=== PATIENT | female | born 1975 | race African-American/Black ===

== ENCOUNTER 2017-10-11 12:23 | Emergency (ER) | payer OTHER ==
--- OUTSIDE RECORDS SUMMARY | 2017-10-11 12:47 | XMS REPORT | Clinical Summary ---
:1975 Author Organization [facility] Address [address] [place] [address] Phone Care Team Providers Name Role Phone Unavailable Primary Care Provider Unavailable Allergies No Known Allergies Current Medications Prescription Sig. Disp. Refills Start Date End Date Status acetaminophen Take 2 30 tablet 0 02/23/2017 02/18/2018 Active (TYLENOL) 325 MG tablets (650 tablet mg total) by mouth every 8 (eight) hours as needed for up to 360 days. ferrous sulfate 325 Take 1 tablet 360 tablet 0 02/23/2017 02/23/2018 Active (65 FE) MG tablet (325 mg total) by mouth daily with breakfast. cefdinir (OMNICEF) Take 1 14 capsule 0 02/23/2017 03/04/2017 Discontinued 300 MG capsule capsule (300 mg total) by mouth every 12 (twelve) hours for 7 days. acetaminophen-codei Take 1 tablet 30 tablet 0 03/04/2017 03/14/2017 ne (TYLENOL #3) by mouth 300-30 mg per every 6 (six) tablet hours as needed for Pain for up to 10 days. Max Daily Amount: 4 tablets docusate sodium Take 1 10 capsule 0 03/04/2017 03/14/2017 (COLACE) 100 MG capsule (100 capsule mg total) by mouth 2 (two) times daily for 10 days. levoFLOXacin Take 1 tablet 5 tablet 0 03/04/2017 03/09/2017 (LEVAQUIN) 500 MG (500 mg tablet total) by mouth daily for 5 days. traMADol (ULTRAM) Take 2 30 tablet 0 03/04/2017 03/14/2017 50 mg tablet tablets (100 mg total) by mouth every 6 (six) hours as needed for up to 10 days. 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 Encounters Date Type Specialty Care Team Description 03/01/2017 - Hospital Encounter General Internal Telly Kc 03/04/2017 Medicine MD Boris 03/01/2017 Procedure Pass 03/01/2017 Surgery Telly Kc NEPHRECTOMY MD Boris 02/26/2017 Hospital Encounter Pre-Admission Telly Kc Testing MD Boris 02/26/2017 Anesthesia Event Axel Butcher MD 02/20/2017 - Hospital Encounter General Internal Francisco, [place] Calculous 02/23/2017 Medicine MD Aydee pyelonephritis;Yuni Bacon, unspecified RGabi, type;XGP Marimar Brennan (xanthogranulomatou MD Patrizia s pyelonephritis) after 10/10/2016 Social History Tobacco Use Types Packs/Day Years Used Date Never Smoker Smokeless Tobacco: Never Used Alcohol Use Drinks/Week oz/Week Comments No Sex Assigned at Date Recorded Not on file Last Filed Vital Signs Vital Sign Reading Time Taken Blood Pressure 109/68 03/04/2017 11:39 AM LAP MACHINE OPERATOR Pulse 92 03/04/2017 11:39 AM LAP MACHINE OPERATOR Temperature 36 C (96.8 F) 03/04/2017 11:39 AM LAP MACHINE OPERATOR Respiratory Rate 18 03/04/2017 11:39 AM LAP MACHINE OPERATOR Oxygen Saturation 95% 03/04/2017 11:39 AM LAP MACHINE OPERATOR Inhaled Oxygen Concentration - - Weight 78.2 kg (172 lb 6.4 oz) 03/01/2017 7:18 AM LAP MACHINE OPERATOR Height 144.8 cm (4' 9") 03/01/2017 7:18 AM LAP MACHINE OPERATOR Body Mass Index 37.31 03/01/2017 7:18 AM LAP MACHINE OPERATOR Plan of Treatment Not on file Procedures Procedure Name Priority Date/Time Associated Diagnosis Comments NEPHRECTOMY 03/01/2017 8:00 AM LAP MACHINE OPERATOR XGP (xanthogranulomatous pyelonephritis) after 10/10/2016 Results INTRAOPERATIVE PATH REPORT - SCAN (03/04/2017 10:41 AM)CBC with platelet count + automated diff (03/04/2017 6:15 AM)Only the most recent of4 resultswithin the time period is included. Component Value Ref Range WBC 17.8 (H) 3.5 - 10.5 K/L RBC 2.91 (L) 3.93 - 5.22 M/L Hemoglobin 7.4 (L) 11.2 - 15.7 GM/DL Hematocrit 24.3 (L) 34.1 - 44.9 % MCV 83.5 79.4 - 94.8 fL MCH 25.4 (L) 25.6 - 32.2 pg MCHC 30.5 (L) 32.2 - 35.5 GM/DL RDW 20.7 (H) 11.7 - 14.4 % Platelets 337 150 - 450 K/CU MM MPV 9.1 (L) 9.4 - 12.3 fL nRBC 0 0 - 0 /100 WBC % Neutros 86 % % Lymphs 6 % % Monos 8 % % Eos 0 % % Baso 0 % # Neutros 15.23 (H) 1.56 - 6.13 K/L # Lymphs 1.03 (L) 1.18 - 3.74 K/L # Monos 1.34 (H) 0.24 - 0.36 K/L # Eos 0.06 0.04 - 0.36 K/L # Baso 0.04 0.01 - 0.08 K/L Immature Granulocytes-Relative 1 0 - 1 % Specimen Performing Laboratory Blood - Arm, [address] [address] CBC with platelet count + automated diff (03/04/2017 6:15 AM)Only the most recent of4 resultswithin the time period is included. Specimen Performing Laboratory Blood Narrative The following orders were created for panel order CBC with platelet count + automated diff. Procedure Abnormality Status --------- ------ CBC with platelet count ...[[id number]]AbnormalFinal result Please view results for these tests on the individual orders. Phosphorus (03/04/2017 4:19 AM)Only the most recent of2 resultswithin the time period is included. Component Value Ref Range Phosphorus 3.1Comment: Specimen slightly hemolyzed 2.3 - 4.7 mg/dL Specimen Performing Laboratory Blood - Arm, [address] [address] Magnesium (03/04/2017 4:19 AM)Only the most recent of2 resultswithin the time period is included. Component Value Ref Range Magnesium 1.7Comment: Specimen slightly hemolyzed 1.6 - 2.6 mg/dL Specimen Performing Laboratory Blood - Arm, [address] [address] Basic Metabolic Panel (03/04/2017 4:19 AM)Only the most recent of8 resultswithin the time period is included. Component Value Ref Range Sodium 134 (L) 136 - 145 meq/L Potassium 4.1Comment: Specimen slightly hemolyzed 3.5 - 5.1 meq/L Chloride 102 98 - 107 meq/L CO2 24 22 - 29 meq/L BUN 5 (L) 7 - 21 mg/dL Creatinine 0.72Comment: Specimen slightly hemolyzed 0.57 - 1.25 mg/dL Glucose 118 (H) 70 - 105 mg/dL Calcium 8.6 8.4 - 10.2 mg/dL EGFR Comment: INSUFFICIENT CLINICAL DATA TO CALCULATE mL/min/1.73 sq m ESTIMATED GFR. Specimen Performing Laboratory Blood - Arm, [address] [address] TRANSFUSION SERVICE REPORT - SCAN (03/03/2017 5:52 PM)Only the most recent of4 resultswithin the time period is included.Prepare Leuko-Red RBC (03/02/2017 11: 54 PM)Only the most recent of2 resultswithin the time period is included. Component Value Ref Range CROSSMATCH COMPATIBLE Unit ABO A Pos UNIT NUMBER [id number] Status TRANSFUSED Blood Bank Product RED BLOOD CELLS PRODUCT CODE Y3635V10 CROSSMATCH COMPATIBLE Unit ABO A Pos UNIT NUMBER [id number] Status RETURNED FROM ISSUE Blood Bank Product RED BLOOD CELLS PRODUCT CODE [id number] Specimen Performing Laboratory Other [place] Urine culture (03/02/2017 8:14 AM)Only the most recent of2 resultswithin the time period is included. Component Value Ref Range Result No growth Specimen Performing Laboratory Urine - Urine, [address] [address] Hemoglobin and hematocrit (03/01/2017 2:05 PM)Only the most recent of3 resultswithin the time period is included. Component Value Ref Range Hemoglobin 9.1 (L) 11.2 - 15.7 GM/DL Hematocrit 30.1 (L) 34.1 - 44.9 % Specimen Performing Laboratory Blood - Line, Arterial [facility] [address] [address] XR chest 1 view portable / bedside (03/01/2017 1:55 PM) Specimen Performing Laboratory GE RIS Narrative FINAL REPORT Chest, AP view. History: Evaluate for pneumothorax. Comparison: None available. Discussion:The cardiomediastinal silhouette and pulmonary vasculature are within normal limits. The lungs are clear without evidence of consolidation or effusion.There are no acute osseous abnormalities. The soft tissues are unremarkable. No pneumothorax. IMPRESSION: No acute cardiopulmonary abnormality. Signed: Lio Gooden MD Report Verified Date/Time:03/01/2017 14:28:53 Reading Location: [facility] Mammo Reading Room Procedure Note Interface, External Ris In - 03/01/2017 2:31 PM LAP MACHINE OPERATOR FINAL REPORT Chest, AP view. History: Evaluate for pneumothorax. Comparison: None available. Discussion: The cardiomediastinal silhouette and pulmonary vasculature are within normal limits. The lungs are clear without evidence of consolidation or effusion. There are no acute osseous abnormalities. The soft tissues are unremarkable. No pneumothorax. IMPRESSION: No acute cardiopulmonary abnormality. Signed: Lio Gooden MD Report Verified Date/Time: 03/01/2017 14:28:53 Reading Location: [facility] Mammo Reading Room Tissue Exam (03/01/2017 11:57 AM) Component Value Ref Range Case Report Surgical Pathology Report Case: [id number] Authorizing Provider:Telly Kc MDCollected: 03/01/2017 1157 Ordering Location: [facility] PERIOPERATIVE Received: 03/01/2017 1205 SERVICES Pathologist: Judy Pineda MD Specimen:Kidney, Right, RIGHT KIDNEY; SHOW AND TELL WITH BIVALVE AND BRING BACK ADDENDUM INTRAOPERATIVE CONSULTATION KIDNEY, RIGHT, RADICAL NEPHRECTOM ( GROSS ONLY): -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 PINEDA ON 03/01 AT 12:15 P.M. CPT CODE: 12275 DIAGNOSIS KIDNEY, RIGHT, RADICAL NEPHRECTOMY: - WEIGHT: 1400 GM - XANTHOGRANULOMATOUS PYELONEPHRITIS, SEE COMMENT - STAGHORN CALCULI IN THE CALYCEAL SYSTEM (GROSS EXAMINATION) - URETER AT THE MARGIN WITH ULCERATED MUCOSA AND CHRONIC INFLAMMATION - ADRENAL GLAND, UNREMARKABLE - NEGATIVE FOR MALIGNANCY Signing Pathologist Direct Phone Line: [phone] COMMENT Section of the kidney shows marked diffuse chronic inflammation and focal foamy histiocytes throughout the renal parenchyma. The hilar region of the kidney is diffusely sclerotic and renal pelvic vasculature are difficult to identify. Presence of multiple large staghorn shaped stones within the dilated calyx are noted as per gross description. Overall, the gross and microscopic examination along with patient's history of recurrent kidney stone and infection is consistent with xanthogranulomatous pyelonephritis. CPT Code(s) 77619 CLINICAL HISTORY Right xanthogranulomatous pyelonephritis SPECIMEN SOURCE Right kidney GROSS DESCRIPTION Part A: The specimen is received fresh for operative labeled with the patient's name, Hussain Go" and "right kidney" and is a 1 ,400 gm total nephrectomy specimen measuring 18.0 x 13.0 x 14.0 cm. A ttached are moderate amount of perinephric adipose tissue and a fragment of adrenal gland (2.0 x 0.4 x 0.3 cm). No distinct ureter or renal vasculature is identified on the outer surface of the specimen . The kidney is bivalved revealing a large dilated calices with staghorn stones within the calayx identified. Within the kidney are exuberant amount of arreguin-yellow purulent exudate. The hilar region is e xcessively fibrotic and sclerosed with no grossly identifiable vascular structures identified. Serially sectioning of the specimen shows no distinct masses. Network Development Coordinator sections are submitted as follows. A1, ureter margin A2-A3, hilar region with renal sinus adipose tissue A4-A6, inside account representative section of cortex A7-A8, renal medulla and renal sinus adipose A9-A10, adrenal gland tissue. CHANDU/ew MICROSCOPIC DESCRIPTION Performed. Specimen Performing Laboratory Tissue - Kidney, Right [facility] [address] [place] [address] [facility] CRITICAL LABS (ABG,NA,K,H&H,GLUCOSE) (03/01/2017 11:07 AM) Specimen Performing Laboratory Blood, Arterial Narrative The following orders were created for panel order [facility] CRITICAL LABS (ABG,NA,K,H&H,GLUCOSE). Procedure Abnormality Status --------- ------ Blood gas, arterial[[id number]]AbnormalFinal result Sodium Na-Stat Lab[[id number]] NormalFinal result Potassium-Stat Lab[[id number]] NormalFinal result Glucose-Stat Lab[[id number]] AbnormalFinal result HGB/HCT (H&H)-Stat Lab[[id number]] Abnormal Final result Please view results for these tests on the individual orders. Potassium-Stat Lab (03/01/2017 11:07 AM) Component Value Ref Range Potassium 4.0 3.6 - 5.5 meq/L Specimen Performing Laboratory Blood, Arterial [address] [address] Sodium Na-Stat Lab (03/01/2017 11:07 AM) Component Value Ref Range Sodium 137 135 - 148 meq/L Specimen Performing Laboratory Blood, Arterial [address] [address] Glucose-Stat Lab (03/01/2017 11:07 AM) Component Value Ref Range Glucose 205 (H) 70 - 110 mg/dL Specimen Performing Laboratory Blood, Arterial [address] [address] HGB/HCT (H&H)-Stat Lab (03/01/2017 11:07 AM) Component Value Ref Range Hemoglobin 8.9 (L) 12.0 - 15.0 g/dL Hematocrit 26.0 (L) 36.0 - 45.0 % Specimen Performing Laboratory Blood, Arterial [address] [address] Calcium, Ionized (03/01/2017 11:07 AM) Component Value Ref Range Calcium, Ion 0.95 (L) 1.12 - 1.27 mmol/L pH, Blood 7.46 Specimen Performing Laboratory Blood [address] [address] Blood gas, arterial (03/01/2017 11:07 AM) Component Value Ref Range pH, Arterial 7.46 (H) 7.35 - 7.45 pCO2, Arterial 35 35 - 45 mmHg pO2, Arterial 265 (H) 80 - 90 mmHg O2 Sat, Arterial 99.7 (H) 96.0 - 97.0 % HCO3, Arterial 24 21 - 29 mmol/L Base Excess, Arterial 0.8 -2.0 - 3.0 mmol/L Patient Temperature 37.0 C FIO2 100.0 % Specimen Performing Laboratory Blood, Arterial [address] [address] Urinalysis w/ Microscopic (03/01/2017 7:56 AM) Component Value Ref Range Color, UA Yellow Clarity, UA Cloudy Specific [place], UA 1.013 1.001 - 1.035 pH, UA 8.0 5.0 - 8.0 Protein, UA 100 mg/dL (A) Negative Glucose, UA Negative Negative Ketones, UA Negative Negative Bilirubin, UA Negative Negative Blood, UA Small (A) Negative Nitrite, UA Negative Negative Leukocytes, UA Large (A) Negative Urobilinogen, UA 0.2 0.2 - 1.0 mg/dL RBC, UA 73 /HPF WBC, UA >182 /HPF Squam Epithel, UA 1 /HPF Specimen Source Urine, Clean Catch Specimen Performing Laboratory Urine - Urine, Clean Catch [address] [address] POCT , urine (03/01/2017 7:54 AM) Component Value Ref Range Test Urine, POC Negative Control line present?, POC Yes Background clear?, POC Yes UPT Cassette Lot #, POC [id number] UPT Cassette Expiration Date, POC 09/16/2018 Specimen Performing Laboratory Urine Type and screen, automated (03/01/2017 7:16 AM)Only the most recent of2 resultswithin the time period is included. Component Value Ref Range Ab Scrn NEGATIVEComment: ECHO 1 Specimen Performing Laboratory Blood [address] [address] ABORH, manual (03/01/2017 7:16 AM) Component Value Ref Range ABO Grouping A Rh Factor POS Specimen Performing Laboratory Blood [address] [address] Prothrombin time/INR (03/01/2017 7:16 AM) Component Value Ref Range Protime 17.2 (H) 11.7 - 14.7 seconds INR 1.4 <=5.9 Specimen Performing Laboratory Blood [address] [address] Narrative RECOMMENDED COUMADIN/WARFARIN INR THERAPY RANGES STANDARD DOSE: 2.0 - 3.0 Includes: PROPHYLAXIS for venous thrombosis, systemic embolization; TREATMENT for venous thrombosis and/or pulmonary embolus. HIGH RISK: Target INR is 2.5-3.5 for patients with mechanical heart valves. hCG, quantitative, (03/01/2017 7:16 AM) Component Value Ref Range hCG Quant <1 0 - 10 mIU/mL Specimen Performing Laboratory Blood [address] [address] Narrative Non- Females: <10 mIU/mL Females: Gestation AgeReference Range(mIU/mL) 0.2-1 Week5-50 1-2 Sprpa43-878 2-3 Weeks 100-5,000 3-4 Weeks 500-10,000 4-5 Weeks 1,000-50,000 5-6 Weeks10,000-100,000 6-8 Weeks15,000-200,000 2-3 Months 10,000-100,000 CBC (Hemogram only) (02/22/2017 4:50 AM)Only the most recent of3 resultswithin the time period is included. Component Value Ref Range WBC 13.1 (H) 3.5 - 10.5 K/L RBC 3.81 (L) 3.93 - 5.22 M/L Hemoglobin 9.1 (L) 11.2 - 15.7 GM/DL Hematocrit 30.1 (L) 34.1 - 44.9 % MCV 79.0 (L) 79.4 - 94.8 fL MCH 23.9 (L) 25.6 - 32.2 pg MCHC 30.2 (L) 32.2 - 35.5 GM/DL RDW 20.6 (H) 11.7 - 14.4 % Platelets 440 150 - 450 K/CU MM MPV 8.6 (L) 9.4 - 12.3 fL nRBC 0 0 - 0 /100 WBC Specimen Performing Laboratory Blood [facility] [address] [address] Transfuse Leuko-Red RBC (02/20/2017 8:05 PM)Only the most recent of3 resultswithin the time period is included.CT abdomen/pelvis without iv contrast (02/20/2017 2:47 PM) Specimen Performing Laboratory GE RIS Narrative FINAL REPORT TECHNIQUE: CT of the abdomen and pelvis WITHOUT intravenous contrast and WITHOUT oral contrast. Dose modulation, iterative reconstruction, and/or weight-based adjustment of the mA/kV was utilized to reduce the radiation dose to as low as reasonably achievable. INDICATION: 41-year-old woman with pyelonephritis. COMPARISON: None. FINDINGS: ABSENCE OF INTRAVENOUS CONTRAST DECREASES SENSITIVITY FOR DETECTION OF FOCAL LESIONS AND VASCULAR PATHOLOGY. LOWER THORAX: Unremarkable. HEPATOBILIARY: Decreased attenuation of the liver, consistent with hepatic steatosis. No focal hepatic lesions. Gallbladder is unremarkable. No biliary ductal dilatation. SPLEEN: No splenomegaly. PANCREAS: No focal masses or ductal dilatation. ADRENALS: No adrenal nodules. KIDNEYS/URETERS: The right kidney is enlarged, measuring 16.5 cm in length, and contains multiple hypodense structures. Staghorn calculus on the right, with additional renal calculi measuring up to 3.1 cm. Right perinephric stranding. Left kidney is unremarkable. PELVIC ORGANS/BLADDER: 1.4 cm partially calcified fibroid at the fundus. Ovaries are grossly. Bladder is unremarkable. PERITONEUM/RETROPERITONEUM: No free air or fluid. LYMPH NODES: Multiple mildly prominent retroperitoneal lymph nodes measure up to 1 cm, likely reactive. VESSELS: Unremarkable. GI TRACT: No distention or wall thickening. BONES AND SOFT TISSUES: Unremarkable. 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 Right staghorn calculus with additional large right renal calculi. Hepatic steatosis. Uterine fibroid. Signed: Mike Urrutia MD Report Verified Date/Time:02/20/2017 15:09:48 Reading Location: [address] Body Reading Room Procedure Note Interface, External Ris In - 02/20/2017 3:11 PM CDT FINAL REPORT TECHNIQUE: CT of the abdomen and pelvis WITHOUT intravenous contrast and WITHOUT oral contrast. Dose modulation, iterative reconstruction, and/or weight-based adjustment of the mA/kV was utilized to reduce the radiation dose to as low as reasonably achievable. INDICATION: 41-year-old woman with pyelonephritis. COMPARISON: None. FINDINGS: ABSENCE OF INTRAVENOUS CONTRAST DECREASES SENSITIVITY FOR DETECTION OF FOCAL LESIONS AND VASCULAR PATHOLOGY. LOWER THORAX: Unremarkable. HEPATOBILIARY: Decreased attenuation of the liver, consistent with hepatic steatosis. No focal hepatic lesions. Gallbladder is unremarkable. No biliary ductal dilatation. SPLEEN: No splenomegaly. PANCREAS: No focal masses or ductal dilatation. ADRENALS: No adrenal nodules. KIDNEYS/URETERS: The right kidney is enlarged, measuring 16.5 cm in length, and contains multiple hypodense structures. Staghorn calculus on the right, with additional renal calculi measuring up to 3.1 cm. Right perinephric stranding. Left kidney is unremarkable. PELVIC ORGANS/BLADDER: 1.4 cm partially calcified fibroid at the fundus. Ovaries are grossly. Bladder is unremarkable. PERITONEUM/RETROPERITONEUM: No free air or fluid. LYMPH NODES: Multiple mildly prominent retroperitoneal lymph nodes measure up to 1 cm, likely reactive. VESSELS: Unremarkable. GI TRACT: No distention or wall thickening. BONES AND SOFT TISSUES: Unremarkable. 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 Right staghorn calculus with additional large right renal calculi. Hepatic steatosis. Uterine fibroid. Signed: Mike Urrutia MD Report Verified Date/Time: 02/20/2017 15:09:48 Reading Location: [facility] B1 C013Y CT Body Reading Room Screen, urine (02/20/2017 11:45 AM) Component Value Ref Range Preg Test, Ur Negative Specimen Performing Laboratory Urine - Urine, Clean Catch [address] [address] Ferritin (02/20/2017 9:49 AM) Component Value Ref Range Ferritin 158 5 - 275 ng/mL Specimen Performing Laboratory Blood [address] [address] Blood culture #2 (02/20/2017 5:14 AM)Only the most recent of2 resultswithin the time period is included. Component Value Ref Range Result No growth in 5 days Specimen Performing Laboratory Blood - Arm, Left [address] [address] Iron, TIBC, % sat. (without ferritin) (02/20/2017 5:07 AM) Component Value Ref Range Iron 9 (L) 40 - 160 ug/dL TIBC 156 (L) 250 - 450 ug/dL Iron % Saturation 6 (L) 20 - 55 % Specimen Performing Laboratory Blood [address] [address] after 10/10/2016
--- OUTSIDE RECORDS SUMMARY | 2017-10-11 12:48 | XMS REPORT ---
:1975 [facility] Address [address] [place] [address] Care Team Providers Name Role Phone LORE KC Unavailable Unavailable JUSTO TEJADA Unavailable Unavailable Problems This patient has no known problems. Allergies, Adverse Reactions, Alerts This patient has no known allergies or adverse reactions. Medications This patient has no known medications. Results Test Description Test Time Test Comments Text Results Atomic Results Result Comments URINE CULTURE 2017-03-04 11:51:00 Test Item Value Reference Range Comments CULTURE (BEAKER) (test jbks=5088) No growth CBC W/PLT COUNT & AUTO [id number] 06:51:00 Test Item Value Reference Range Comments WHITE BLOOD CELL COUNT (BEAKER) (test sokl=773) 17.8 K/ L 3.5-10.5 RED BLOOD CELL COUNT (BEAKER) (test opuv=961) 2.91 M/ L 3.93-5.22 HEMOGLOBIN (BEAKER) (test hgis=200) 7.4 GM/DL 11.2-15.7 HEMATOCRIT (BEAKER) (test lcfk=145) 24.3 % 34.1-44.9 MEAN CORPUSCULAR VOLUME (BEAKER) (test dofy=672) 83.5 fL 79.4-94.8 MEAN CORPUSCULAR HEMOGLOBIN (BEAKER) (test 25.4 pg 25.6-32.2 jfyf=317) MEAN CORPUSCULAR HEMOGLOBIN CONC (BEAKER) (test 30.5 GM/DL 32.2-35.5 ismf=685) RED CELL DISTRIBUTION WIDTH (BEAKER) (test 20.7 % 11.7-14.4 pnqh=997) PLATELET COUNT (BEAKER) (test bvrq=047) 337 K/CU MM 150-450 MEAN PLATELET VOLUME (BEAKER) (test degc=301) 9.1 fL 9.4-12.3 NUCLEATED RED BLOOD CELLS (BEAKER) (test 0 /100 WBC 0-0 cbmm=353) NEUTROPHILS RELATIVE PERCENT (BEAKER) (test 86 % kqys=659) LYMPHOCYTES RELATIVE PERCENT (BEAKER) (test 6 % pjou=043) MONOCYTES RELATIVE PERCENT (BEAKER) (test 8 % yraq=930) EOSINOPHILS RELATIVE PERCENT (BEAKER) (test 0 % zsqs=833) BASOPHILS RELATIVE PERCENT (BEAKER) (test 0 % ycuh=877) NEUTROPHILS ABSOLUTE COUNT (BEAKER) (test 15.23 K/ L 1.56-6.13 bxct=221) LYMPHOCYTES ABSOLUTE COUNT (BEAKER) (test 1.03 K/ L 1.18-3.74 qhvm=587) MONOCYTES ABSOLUTE COUNT (BEAKER) (test 1.34 K/ L 0.24-0.36 fcxj=145) EOSINOPHILS ABSOLUTE COUNT (BEAKER) (test 0.06 K/ L 0.04-0.36 omwo=354) BASOPHILS ABSOLUTE COUNT (BEAKER) (test 0.04 K/ L 0.01-0.08 cvhr=629) IMMATURE GRANULOCYTES-RELATIVE PERCENT (BEAKER) 1 % 0-1 (test nfpo=4214) [id number] 05:32:00 Test Item Value Reference Range Comments MAGNESIUM (BEAKER) (test 1.7 mg/dL 1.6-2.6 Specimen slightly hemolyzed oqas=313) [id number] 05:32:00 Test Item Value Reference Range Comments PHOSPHORUS (BEAKER) (test 3.1 mg/dL 2.3-4.7 Specimen slightly hemolyzed juzg=653) BASIC METABOLIC [id number] 05:32:00 Test Item Value Reference Range Comments SODIUM (BEAKER) (test 134 meq/L 136-145 zdtm=096) POTASSIUM (BEAKER) (test 4.1 meq/L 3.5-5.1 Specimen slightly nrss=129) hemolyzed CHLORIDE (BEAKER) (test 102 meq/L 98-107 ydoz=059) CO2 (BEAKER) (test 24 meq/L 22-29 ykpj=847) BLOOD UREA NITROGEN 5 mg/dL 7-21 (BEAKER) (test uepp=854) CREATININE (BEAKER) (test 0.72 mg/dL 0.57-1.25 Specimen slightly oqwq=805) hemolyzed GLUCOSE RANDOM (BEAKER) 118 mg/dL 70-105 (test uqiy=544) CALCIUM (BEAKER) (test 8.6 mg/dL 8.4-10.2 ihqp=691) EGFR (BEAKER) (test mL/min/1.73 sq m INSUFFICIENT CLINICAL DATA bfgv=2047) TO CALCULATE ESTIMATED GFR. 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 [id number] xanthogranulomatous pyelonephritisRight kidneyPart A: The specimen is received fresh for operative labeled with the patient's name, Graciela Go" and "right kidney" and is a 1,400 gm total nephrectomy specimen measuring 18.0 x 13.0 x 14.0 cm. Attached are moderate amount of perinephric adipose tissue and a fragment of adrenal gland (2.0 x 0.4 x 0.3 cm). No distinct ureter or renal vasculature is identified onthe outer surface of the specimen. The kidney is bivalved revealing a large dilated calices with staghorn stones within the calayx identified. Within the kidney are exuberant amount of arreguin-yellow purulent exudate. The hilar region is excessively fibrotic and sclerosed with no grossly identifiable vascular structures identified. Serially sectioning of the specimen shows no distinct masses. School Health Assistant sections are submitted as follows. A1, ureter marginA2-A3, hilar region with renal sinus adipose tissueA4- A6, retail wireless sales representative section of cortexA7-A8, renal medulla and renal sinus adiposeA9-A10, adrenal gland tissue. CHANDU/ewPerformed.[id number] 05:51: 00 Test Item Value Reference Range Comments PHOSPHORUS (BEAKER) (test igdv=783) 2.8 mg/dL 2.3-4.7 [id number] 05:51:00 Test Item Value Reference Range Comments MAGNESIUM (BEAKER) (test gffq=397) 1.7 mg/dL 1.6-2.6 BASIC METABOLIC [id number] 05:51:00 Test Item Value Reference Range Comments SODIUM (BEAKER) (test 136 meq/L 136-145 jfsq=799) POTASSIUM (BEAKER) (test 4.4 meq/L 3.5-5.1 jowb=847) CHLORIDE (BEAKER) (test 104 meq/L 98-107 azdf=581) CO2 (BEAKER) (test 25 meq/L 22-29 gqgw=128) BLOOD UREA NITROGEN 5 mg/dL 7-21 (BEAKER) (test xtcn=761) CREATININE (BEAKER) (test 0.76 mg/dL 0.57-1.25 ohst=789) GLUCOSE RANDOM (BEAKER) 229 mg/dL 70-105 (test tdde=064) CALCIUM (BEAKER) (test 8.2 mg/dL 8.4-10.2 wmvd=607) EGFR (BEAKER) (test mL/min/1.73 sq m INSUFFICIENT CLINICAL DATA hmcd=9560) TO CALCULATE ESTIMATED GFR. CBC W/PLT COUNT & AUTO [id number] 05:38:00 Test Item Value Reference Range Comments WHITE BLOOD CELL COUNT (BEAKER) (test eydj=551) 17.9 K/ L 3.5-10.5 RED BLOOD CELL COUNT (BEAKER) (test klcb=900) 2.92 M/ L 3.93-5.22 HEMOGLOBIN (BEAKER) (test fujd=791) 7.5 GM/DL 11.2-15.7 HEMATOCRIT (BEAKER) (test xxag=627) 24.3 % 34.1-44.9 MEAN CORPUSCULAR VOLUME (BEAKER) (test asyp=961) 83.2 fL 79.4-94.8 MEAN CORPUSCULAR HEMOGLOBIN (BEAKER) (test 25.7 pg 25.6-32.2 olbq=408) MEAN CORPUSCULAR HEMOGLOBIN CONC (BEAKER) (test 30.9 GM/DL 32.2-35.5 ypvh=365) RED CELL DISTRIBUTION WIDTH (BEAKER) (test 20.8 % 11.7-14.4 oxbm=185) PLATELET COUNT (BEAKER) (test dzqu=287) 319 K/CU MM 150-450 MEAN PLATELET VOLUME (BEAKER) (test qzpw=506) 9.3 fL 9.4-12.3 NUCLEATED RED BLOOD CELLS (BEAKER) (test 0 /100 WBC 0-0 tedq=363) NEUTROPHILS RELATIVE PERCENT (BEAKER) (test 85 % htav=111) LYMPHOCYTES RELATIVE PERCENT (BEAKER) (test 6 % kory=025) MONOCYTES RELATIVE PERCENT (BEAKER) (test 8 % ehze=921) EOSINOPHILS RELATIVE PERCENT (BEAKER) (test 0 % ivaq=897) BASOPHILS RELATIVE PERCENT (BEAKER) (test 0 % anre=835) NEUTROPHILS ABSOLUTE COUNT (BEAKER) (test 15.23 K/ L 1.56-6.13 socs=237) LYMPHOCYTES ABSOLUTE COUNT (BEAKER) (test 1.04 K/ L 1.18-3.74 hpvr=131) MONOCYTES ABSOLUTE COUNT (BEAKER) (test 1.44 K/ L 0.24-0.36 hkiz=771) EOSINOPHILS ABSOLUTE COUNT (BEAKER) (test 0.01 K/ L 0.04-0.36 evwx=602) BASOPHILS ABSOLUTE COUNT (BEAKER) (test 0.04 K/ L 0.01-0.08 vskc=299) IMMATURE GRANULOCYTES-RELATIVE PERCENT (BEAKER) 1 % 0-1 (test tvcs=7454) BASIC METABOLIC [id number] 02:56:00 Test Item Value Reference Range Comments SODIUM (BEAKER) (test 133 meq/L 136-145 qxgc=133) POTASSIUM (BEAKER) (test 4.9 meq/L 3.5-5.1 fbeo=576) CHLORIDE (BEAKER) (test 104 meq/L 98-107 drhu=408) CO2 (BEAKER) (test 22 meq/L 22-29 bqxt=153) BLOOD UREA NITROGEN 10 mg/dL 7-21 (BEAKER) (test vtin=822) CREATININE (BEAKER) (test 0.79 mg/dL 0.57-1.25 ozzx=683) GLUCOSE RANDOM (BEAKER) 166 mg/dL 70-105 (test imwk=153) CALCIUM (BEAKER) (test 8.5 mg/dL 8.4-10.2 ovfe=449) EGFR (BEAKER) (test mL/min/1.73 sq m INSUFFICIENT CLINICAL DATA gtkm=3261) TO CALCULATE ESTIMATED GFR. CBC W/PLT COUNT & AUTO [id number] 02:53:00 Test Item Value Reference Range Comments WHITE BLOOD CELL COUNT (BEAKER) (test krzp=128) 23.5 K/ L 3.5-10.5 RED BLOOD CELL COUNT (BEAKER) (test saxv=499) 3.40 M/ L 3.93-5.22 HEMOGLOBIN (BEAKER) (test vlua=432) 8.4 GM/DL 11.2-15.7 HEMATOCRIT (BEAKER) (test lgsx=386) 28.0 % 34.1-44.9 MEAN CORPUSCULAR VOLUME (BEAKER) (test uldp=178) 82.4 fL 79.4-94.8 MEAN CORPUSCULAR HEMOGLOBIN (BEAKER) (test 24.7 pg 25.6-32.2 asnj=652) MEAN CORPUSCULAR HEMOGLOBIN CONC (BEAKER) (test 30.0 GM/DL 32.2-35.5 xeem=026) RED CELL DISTRIBUTION WIDTH (BEAKER) (test 20.4 % 11.7-14.4 tbqe=473) PLATELET COUNT (BEAKER) (test dkaz=846) 385 K/CU MM 150-450 MEAN PLATELET VOLUME (BEAKER) (test xodg=109) 9.0 fL 9.4-12.3 NUCLEATED RED BLOOD CELLS (BEAKER) (test 0 /100 WBC 0-0 lnxk=838) NEUTROPHILS RELATIVE PERCENT (BEAKER) (test 88 % svig=102) LYMPHOCYTES RELATIVE PERCENT (BEAKER) (test 5 % ncfu=147) MONOCYTES RELATIVE PERCENT (BEAKER) (test 6 % ahpj=507) EOSINOPHILS RELATIVE PERCENT (BEAKER) (test 0 % tqdn=921) BASOPHILS RELATIVE PERCENT (BEAKER) (test 0 % bzxb=840) NEUTROPHILS ABSOLUTE COUNT (BEAKER) (test 20.57 K/ L 1.56-6.13 mwbp=697) LYMPHOCYTES ABSOLUTE COUNT (BEAKER) (test 1.27 K/ L 1.18-3.74 zvop=826) MONOCYTES ABSOLUTE COUNT (BEAKER) (test 1.48 K/ L 0.24-0.36 lzdk=391) EOSINOPHILS ABSOLUTE COUNT (BEAKER) (test 0.00 K/ L 0.04-0.36 skgg=332) BASOPHILS ABSOLUTE COUNT (BEAKER) (test 0.02 K/ L 0.01-0.08 ikdv=051) IMMATURE GRANULOCYTES-RELATIVE PERCENT (BEAKER) 1 % 0-1 (test kylc=5350) BASIC METABOLIC [id number] 14:53:00 Test Item Value Reference Range Comments SODIUM (BEAKER) (test 135 meq/L 136-145 wpcw=528) POTASSIUM (BEAKER) (test 4.8 meq/L 3.5-5.1 chui=665) CHLORIDE (BEAKER) (test 106 meq/L 98-107 haqz=166) CO2 (BEAKER) (test 25 meq/L 22-29 timp=959) BLOOD UREA NITROGEN 10 mg/dL 7-21 (BEAKER) (test ldkw=053) CREATININE (BEAKER) (test 0.89 mg/dL 0.57-1.25 mcye=844) GLUCOSE RANDOM (BEAKER) 273 mg/dL 70-105 (test aeru=362) CALCIUM (BEAKER) (test 8.1 mg/dL 8.4-10.2 hjjr=967) EGFR (BEAKER) (test mL/min/1.73 sq m INSUFFICIENT CLINICAL DATA kehy=9221) TO CALCULATE ESTIMATED GFR. RAD, CHEST, 1 VIEW, NON [id number] 14:28:00Reason for exam:->eval for pneumothoraxIs the patient ?->NoShould this be performed atthe bedside?->YesFINAL REPORT Chest, AP view. History: Evaluate for pneumothorax. Comparison: None available. Discussion: The cardiomediastinal silhouette and pulmonary vasculature are within normal limits. The lungs are clear without evidence of consolidation or effusion. There are no acuteosseous abnormalities. The soft tissues are unremarkable. No pneumothorax. IMPRESSION: No acute cardiopulmonary abnormality. Signed: Jak Gooden MDReport Verified Date/Time: 03/01/2017 14:28:53 [facility] HEMOGLOBIN AND [id number] 14:17:00 Test Item Value Reference Range Comments HEMOGLOBIN (BEAKER) (test kxid=019) 9.1 GM/DL 11.2-15.7 HEMATOCRIT (BEAKER) (test lupt=229) 30.1 % 34.1-44.9 URINALYSIS W/ [id number] 12:30:00 Test Item Value Reference Range Comments COLOR (BEAKER) (test dsvc=581) Yellow CLARITY (BEAKER) (test ttax=384) Cloudy SPECIFIC GRAVITY UA (BEAKER) (test 1.013 1.001-1.035 taqc=072) PH UA (BEAKER) (test izpn=129) 8.0 5.0-8.0 PROTEIN UA (BEAKER) (test qzsu=108) 100 mg/dL Negative GLUCOSE UA (BEAKER) (test geil=353) Negative Negative KETONES UA (BEAKER) (test zdus=009) Negative Negative BILIRUBIN UA (BEAKER) (test pvem=251) Negative Negative BLOOD UA (BEAKER) (test rcmm=882) Small Negative NITRITE UA (BEAKER) (test mjlf=164) Negative Negative LEUKOCYTE ESTERASE UA (BEAKER) (test Large Negative zbfd=851) UROBILINOGEN UA (BEAKER) (test cpro=731) 0.2 mg/dL 0.2-1.0 RBC UA (BEAKER) (test objr=216) 73 /HPF WBC UA (BEAKER) (test sisn=134) > /HPF SQUAMOUS EPITHELIAL (BEAKER) (test 1 /HPF xlzd=072) SOURCE(BEAKER) (test jnle=7715) Urine, Clean Catch CALCIUM, [id number] 11:18:00 Test Item Value Reference Range Comments CALCIUM IONIZED (BEAKER) (test nslu=056) 0.95 mmol/L 1.12-1.27 PH, BLOOD (BEAKER) (test mcjx=0870) 7.46 BLOOD GAS, [id number] 11:17:00 Test Item Value Reference Range Comments PH ARTERIAL (BEAKER) (test vjtt=229) 7.46 7.35-7.45 PCO2 ARTERIAL (BEAKER) (test dqml=198) 35 mmHg 35-45 PO2 ARTERIAL (BEAKER) (test yaze=484) 265 mmHg 80-90 O2 SATURATION ARTERIAL (BEAKER) (test exuy=239) 99.7 % 96.0-97.0 HCO3 ARTERIAL (BEAKER) (test detq=136) 24 mmol/L 21-29 BASE EXCESS ARTERIAL (BEAKER) (test qosj=875) 0.8 mmol/L -2.0-3.0 PATIENT TEMPERATURE (BEAKER) (test qhhp=1223) 37.0 C FIO2 (BEAKER) (test hrqi=3927) 100.0 % GLUCOSE-STAT [id number] 11:17:00 Test Item Value Reference Range Comments GLUCOSE RANDOM (BEAKER) (test hvsa=523) 205 mg/dL 70-110 HGB/HCT (H&H) - STAT [id number] 11:17:00 Test Item Value Reference Range Comments HEMOGLOBIN (BEAKER) (test wsqd=780) 8.9 g/dL 12.0-15.0 HEMATOCRIT (BEAKER) (test gjpq=854) 26.0 % 36.0-45.0 SODIUM NA-STAT [id number] 11:16:00 Test Item Value Reference Range Comments SODIUM (BEAKER) (test hhem=765) 137 meq/L 135-148 POTASSIUM-STAT [id number] 11:16:00 Test Item Value Reference Range Comments POTASSIUM (BEAKER) (test xbsf=385) 4.0 meq/L 3.6-5.5 HCG, QUANTITATIVE, [id number] 09:41:00 Test Item Value Reference Range Comments GONADOTROPIN, CHORIONIC (HCG) QUANT (BEAKER) (test < mIU/mL 0-10 svml=286) Non- Females: <10 mIU/mL Females: Gestation Age Reference Range(mIU/mL) 0.2-1 Week 5-50 1-2 Weeks 50-500 2-3 Weeks 100-5,000 3-4Weeks 500-10,000 4 -5 Weeks 1,000-50,000 5-6 Weeks 10,000-100,000 6-8 Weeks 15,000-200,000 2-3 Months 10,000-100,000BASIC METABOLIC [id number] 09:28:00 Test Item Value Reference Range Comments SODIUM (BEAKER) (test 138 meq/L 136-145 cdta=167) POTASSIUM (BEAKER) (test 4.1 meq/L 3.5-5.1 svcd=512) CHLORIDE (BEAKER) (test 100 meq/L 98-107 qszi=413) CO2 (BEAKER) (test 30 meq/L 22-29 lpom=592) BLOOD UREA NITROGEN 8 mg/dL 7-21 (BEAKER) (test okua=679) CREATININE (BEAKER) (test 0.78 mg/dL 0.57-1.25 yqsg=038) GLUCOSE RANDOM (BEAKER) 92 mg/dL 70-105 (test oogl=595) CALCIUM (BEAKER) (test 9.0 mg/dL 8.4-10.2 cxuo=953) EGFR (BEAKER) (test mL/min/1.73 sq m INSUFFICIENT CLINICAL DATA pkua=4965) TO CALCULATE ESTIMATED GFR. PROTHROMBIN [id number] 09:09:00 Test Item Value Reference Range Comments PROTIME (BEAKER) (test wogq=883) 17.2 seconds 11.7-14.7 INR (BEAKER) (test btrk=826) 1.4 <=5.9 RECOMMENDED COUMADIN/WARFARIN INR THERAPY RANGESSTANDARD DOSE: 2.0 - 3.0 Includes: PROPHYLAXIS forvenous thrombosis, systemic embolization; TREATMENT for venous thrombosis and/or pulmonary embolus.HIGH RISK: Target INR is 2.5-3.5 for patients with mechanical heart valves.CBC W/PLT COUNT & AUTO [id number] 08:59:00 Test Item Value Reference Range Comments WHITE BLOOD CELL COUNT (BEAKER) (test kvpt=665) 10.7 K/ L 3.5-10.5 RED BLOOD CELL COUNT (BEAKER) (test scul=529) 4.14 M/ L 3.93-5.22 HEMOGLOBIN (BEAKER) (test jqao=192) 10.0 GM/DL 11.2-15.7 HEMATOCRIT (BEAKER) (test ilie=069) 34.0 % 34.1-44.9 MEAN CORPUSCULAR VOLUME (BEAKER) (test dzrw=745) 82.1 fL 79.4-94.8 MEAN CORPUSCULAR HEMOGLOBIN (BEAKER) (test 24.2 pg 25.6-32.2 jysa=360) MEAN CORPUSCULAR HEMOGLOBIN CONC (BEAKER) (test 29.4 GM/DL 32.2-35.5 aczc=142) RED CELL DISTRIBUTION WIDTH (BEAKER) (test 22.6 % 11.7-14.4 oesq=994) PLATELET COUNT (BEAKER) (test mgze=873) 463 K/CU MM 150-450 MEAN PLATELET VOLUME (BEAKER) (test nkqb=464) 9.2 fL 9.4-12.3 NUCLEATED RED BLOOD CELLS (BEAKER) (test 0 /100 WBC 0-0 wmcz=973) NEUTROPHILS RELATIVE PERCENT (BEAKER) (test 74 % hbmw=364) LYMPHOCYTES RELATIVE PERCENT (BEAKER) (test 16 % jhth=208) MONOCYTES RELATIVE PERCENT (BEAKER) (test 8 % anca=266) EOSINOPHILS RELATIVE PERCENT (BEAKER) (test 1 % syvx=369) BASOPHILS RELATIVE PERCENT (BEAKER) (test 1 % mkft=567) NEUTROPHILS ABSOLUTE COUNT (BEAKER) (test 7.91 K/ L 1.56-6.13 kmjx=966) LYMPHOCYTES ABSOLUTE COUNT (BEAKER) (test 1.75 K/ L 1.18-3.74 sepk=677) MONOCYTES ABSOLUTE COUNT (BEAKER) (test 0.81 K/ L 0.24-0.36 nrov=197) EOSINOPHILS ABSOLUTE COUNT (BEAKER) (test 0.12 K/ L 0.04-0.36 xcui=206) BASOPHILS ABSOLUTE COUNT (BEAKER) (test 0.06 K/ L 0.01-0.08 zuml=147) IMMATURE GRANULOCYTES-RELATIVE PERCENT (BEAKER) 0 % 0-1 (test gkks=6142) BLOOD [id number] 10:00:00 Test Item Value Reference Range Comments CULTURE (BEAKER) (test ycpu=2459) No growth in 5 days BLOOD [id number] 10:00:00 Test Item Value Reference Range Comments CULTURE (BEAKER) (test cthq=1594) No growth in 5 days URINE [id number] 12:32:00 Test Item Value Reference Range Comments CULTURE (BEAKER) (test nxig=0946) Amikacin (test code=1) Ampicillin + Sulbactam (test code=6) Aztreonam (test code=32) Cefepime (test code=51) Cefoxitin (test code=68) Ceftazidime (test code=27) Ceftriaxone (test code=52) Ertapenem (test code=38) Gentamicin (test code=18) Levofloxacin (test code=22) Meropenem (test code=34) Nitrofurantoin (test code=23) Piperacillin + Tazobactam (test code=29) Tetracycline (test code=2) Tobramycin (test code=25) Trimethoprim + Sulfamethoxazole (test code=47) CULTURE (BEAKER) (test PROTEUS MIRABILIS 20-29,000 col/mL kfyd=9807) Escherichia coli Amikacin (test code=1) Ampicillin + Sulbactam (test code=6) Aztreonam (test code=32) Cefepime (test code=51) Cefoxitin (test code=68) Ceftazidime (test code=27) Ceftriaxone (test code=52) Ertapenem (test code=38) Gentamicin (test code=18) Levofloxacin (test code=22) Meropenem (test code=34) Nitrofurantoin (test code=23) Piperacillin + Tazobactam (test code=29) Tetracycline (test code=2) Tobramycin (test code=25) Trimethoprim + Sulfamethoxazole (test code=47) CULTURE (BEAKER) (test 10-19,000 col/mL npec=8323) Proteus mirabilis <10,000 col/mL skin floraCBC (HEMOGRAM ONLY)2017-02-22 06:19:00 Test Item Value Reference Range Comments WHITE BLOOD CELL COUNT (BEAKER) (test zvnc=274) 13.1 K/ L 3.5-10.5 RED BLOOD CELL COUNT (BEAKER) (test dfso=285) 3.81 M/ L 3.93-5.22 HEMOGLOBIN (BEAKER) (test hddg=567) 9.1 GM/DL 11.2-15.7 HEMATOCRIT (BEAKER) (test yoxs=333) 30.1 % 34.1-44.9 MEAN CORPUSCULAR VOLUME (BEAKER) (test sgsx=273) 79.0 fL 79.4-94.8 MEAN CORPUSCULAR HEMOGLOBIN (BEAKER) (test 23.9 pg 25.6-32.2 wcdh=326) MEAN CORPUSCULAR HEMOGLOBIN CONC (BEAKER) (test 30.2 GM/DL 32.2-35.5 dpam=115) RED CELL DISTRIBUTION WIDTH (BEAKER) (test 20.6 % 11.7-14.4 jqul=846) PLATELET COUNT (BEAKER) (test gyha=592) 440 K/CU MM 150-450 MEAN PLATELET VOLUME (BEAKER) (test ukqd=415) 8.6 fL 9.4-12.3 NUCLEATED RED BLOOD CELLS (BEAKER) (test 0 /100 WBC 0-0 beth=200) BASIC METABOLIC [id number] 05:47:00 Test Item Value Reference Range Comments SODIUM (BEAKER) (test 139 meq/L 136-145 okcy=225) POTASSIUM (BEAKER) (test 4.8 meq/L 3.5-5.1 yvgq=656) CHLORIDE (BEAKER) (test 106 meq/L 98-107 ourr=266) CO2 (BEAKER) (test 26 meq/L 22-29 oswa=627) BLOOD UREA NITROGEN 8 mg/dL 7-21 (BEAKER) (test jbcq=313) CREATININE (BEAKER) (test 0.73 mg/dL 0.57-1.25 lwlz=530) GLUCOSE RANDOM (BEAKER) 107 mg/dL 70-105 (test mswi=760) CALCIUM (BEAKER) (test 8.7 mg/dL 8.4-10.2 euer=346) EGFR (BEAKER) (test mL/min/1.73 sq m INSUFFICIENT CLINICAL DATA kpsa=6994) TO CALCULATE ESTIMATED GFR. BASIC METABOLIC [id number] 06:25:00 Test Item Value Reference Range Comments SODIUM (BEAKER) (test 134 meq/L 136-145 jxjk=646) POTASSIUM (BEAKER) (test 4.2 meq/L 3.5-5.1 vgef=953) CHLORIDE (BEAKER) (test 104 meq/L 98-107 okhq=178) CO2 (BEAKER) (test 23 meq/L 22-29 jgvy=757) BLOOD UREA NITROGEN 8 mg/dL 7-21 (BEAKER) (test iphv=597) CREATININE (BEAKER) (test 0.80 mg/dL 0.57-1.25 rbje=743) GLUCOSE RANDOM (BEAKER) 170 mg/dL 70-105 (test obmu=380) CALCIUM (BEAKER) (test 8.0 mg/dL 8.4-10.2 jafd=131) EGFR (BEAKER) (test mL/min/1.73 sq m INSUFFICIENT CLINICAL DATA vcoz=3866) TO CALCULATE ESTIMATED GFR. CBC (HEMOGRAM ONLY)2017-02-21 05:12:00 Test Item Value Reference Range Comments WHITE BLOOD CELL COUNT (BEAKER) (test mjid=620) 14.3 K/ L 3.5-10.5 RED BLOOD CELL COUNT (BEAKER) (test yszm=354) 4.00 M/ L 3.93-5.22 HEMOGLOBIN (BEAKER) (test pedm=072) 9.3 GM/DL 11.2-15.7 HEMATOCRIT (BEAKER) (test xdpq=480) 31.0 % 34.1-44.9 MEAN CORPUSCULAR VOLUME (BEAKER) (test heus=457) 77.5 fL 79.4-94.8 MEAN CORPUSCULAR HEMOGLOBIN (BEAKER) (test 23.3 pg 25.6-32.2 traj=711) MEAN CORPUSCULAR HEMOGLOBIN CONC (BEAKER) (test 30.0 GM/DL 32.2-35.5 tbsj=031) RED CELL DISTRIBUTION WIDTH (BEAKER) (test 20.0 % 11.7-14.4 lrai=081) PLATELET COUNT (BEAKER) (test qwfm=295) 462 K/CU MM 150-450 MEAN PLATELET VOLUME (BEAKER) (test scxf=198) 8.6 fL 9.4-12.3 NUCLEATED RED BLOOD CELLS (BEAKER) (test 0 /100 WBC 0-0 gfyj=657) HEMOGLOBIN AND [id number] 23:25:00 Test Item Value Reference Range Comments HEMOGLOBIN (BEAKER) (test ptxm=964) 9.0 GM/DL 11.2-15.7 HEMATOCRIT (BEAKER) (test ievt=166) 30.0 % 34.1-44.9 CT, [id number] 15:09:00FINAL REPORT TECHNIQUE: CT of the abdomen and pelvis WITHOUT intravenous contrast and WITHOUT oral contrast. Dose modulation, iterative reconstruction, and/or weight-based adjustment of the mA/kV was utilized to reduce the radiation dose to as low as reasonably achievable. INDICATION: 41-year-old woman with pyelonephritis. COMPARISON: None. FINDINGS: ABSENCE OF INTRAVENOUS CONTRAST DECREASES SENSITIVITY FOR DETECTION OF FOCAL LESIONS AND VASCULAR PATHOLOGY. LOWER THORAX : Unremarkable. HEPATOBILIARY: Decreased attenuation of the liver, consistent with hepatic steatosis. No focal hepatic lesions. Gallbladder is unremarkable. No biliary ductal dilatation.SPLEEN: No splenomegaly.PANCREAS: No focal masses or ductal dilatation. ADRENALS: No adrenal nodules.KIDNEYS/URETERS: The right kidney is enlarged, measuring 16.5 cm in length, and contains multiple hypodense structures. Staghorn calculus on the right, with additional renal calculi measuring up to 3.1 cm. Right perinephric stranding. Left kidney is unremarkable.PELVIC ORGANS/BLADDER: 1.4 cm partially calcified fibroid at the fundus. Ovaries are grossly. Bladder is unremarkable. PERITONEUM/RETROPERITONEUM : No free air or fluid.LYMPH NODES: Multiple mildly prominent retroperitoneal lymph nodes measure up to 1 cm, likely reactive.VESSELS: Unremarkable. GI TRACT : No distention or wall thickening. BONES AND SOFT TISSUES: Unremarkable. 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 Hepatic steatosis. Uterine fibroid. Signed: Mike Urrutia MDReport Verified Date/Time: 02/20/2017 15:09: 48 Reading Location: [facility] C013Y CT Body Reading Room PREGNANCY SCREEN, [id number] 12:21:00 Test Item Value Reference Range Comments TEST URINE (BEAKER) (test zyzj=571) Negative [id number] 10:54:00 Test Item Value Reference Range Comments FERRITIN (BEAKER) (test yfzk=388) 158 ng/mL 5-275 HEMOGLOBIN AND [id number] 10:33:00 Test Item Value Reference Range Comments HEMOGLOBIN (BEAKER) (test pvrl=308) 6.7 GM/DL 11.2-15.7 HEMATOCRIT (BEAKER) (test qrlg=671) 22.9 % 34.1-44.9 2 hrs Post transfusionBASIC METABOLIC [id number] 07:14:00 Test Item Value Reference Range Comments SODIUM (BEAKER) (test 135 meq/L 136-145 kgpe=595) POTASSIUM (BEAKER) (test 4.4 meq/L 3.5-5.1 svii=612) CHLORIDE (BEAKER) (test 103 meq/L 98-107 qzzp=767) CO2 (BEAKER) (test 25 meq/L 22-29 vyez=504) BLOOD UREA NITROGEN 8 mg/dL 7-21 (BEAKER) (test iibg=362) CREATININE (BEAKER) (test 0.75 mg/dL 0.57-1.25 uhdc=339) GLUCOSE RANDOM (BEAKER) 132 mg/dL 70-105 (test gzyu=904) CALCIUM (BEAKER) (test 8.3 mg/dL 8.4-10.2 smfs=494) EGFR (BEAKER) (test mL/min/1.73 sq m INSUFFICIENT CLINICAL DATA ylsf=5700) TO CALCULATE ESTIMATED GFR. IRON, TIBC, % SAT. (WITHOUT FERRITIN)2017-02-20 05:59:00 Test Item Value Reference Range Comments IRON (BEAKER) (test kqtt=161) 9 ug/dL 40-160 TOTAL IRON BINDING CAPACITY (BEAKER) (test 156 ug/dL 250-450 racm=889) IRON % SATURATION (2) (BEAKER) (test ulqe=6158) 6 % 20-55 CBC (HEMOGRAM ONLY)2017-02-20 05:52:00 Test Item Value Reference Range Comments WHITE BLOOD CELL COUNT (BEAKER) (test uzfh=793) 15.9 K/ L 3.5-10.5 RED BLOOD CELL COUNT (BEAKER) (test bysu=196) 3.08 M/ L 3.93-5.22 HEMOGLOBIN (BEAKER) (test ihdi=851) 6.7 GM/DL 11.2-15.7 HEMATOCRIT (BEAKER) (test mfnv=187) 23.3 % 34.1-44.9 MEAN CORPUSCULAR VOLUME (BEAKER) (test dgtv=177) 75.6 fL 79.4-94.8 MEAN CORPUSCULAR HEMOGLOBIN (BEAKER) (test 21.8 pg 25.6-32.2 aigq=358) MEAN CORPUSCULAR HEMOGLOBIN CONC (BEAKER) (test 28.8 GM/DL 32.2-35.5 mlsr=412) RED CELL DISTRIBUTION WIDTH (BEAKER) (test 19.5 % 11.7-14.4 mosi=223) PLATELET COUNT (BEAKER) (test uyfb=160) 480 K/CU MM 150-450 MEAN PLATELET VOLUME (BEAKER) (test bsdc=923) 8.9 fL 9.4-12.3 NUCLEATED RED BLOOD CELLS (BEAKER) (test 0 /100 WBC 0-0 sviu=502)
--- NOTE | 2017-10-11 14:26 | RAD REPORT ---
EXAM DESCRIPTION: RAD - Lumbar Spine 3 Views - 10/11/2017 2:20 pm CLINICAL HISTORY: PAIN Radiculopathy COMPARISON: No comparisons FINDINGS: Vertebral body heights appear maintained. No compression fracture noted. Disc spaces are m aintained. No spondylolysis or spondylolisthesis. Cholecystectomy clips. IMPRESSION: Negative study.
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
== END 2017-10-11 15:01 | disposition home or self-care (01) ==
LOC: ER 12:23
DX: S30.0XXA Contusion of lower back and pelvis, initial encounter (principal); V53.6XXA Passenger in pick-up truck or van injured in collision with car, pick-up truck or van in traffic accident, initial encounter; Y92.410 Unspecified street and highway as the place of occurrence of the external cause; Y93.9 Activity, unspecified; Z90.5 Acquired absence of kidney
CPT/HCPCS: 72100; 99284